=== PATIENT | female | born 1970 | race Hispanic/Latino ===

== ENCOUNTER 2021-05-27 02:12 | Emergency (ER) | payer OTHER ==
[~2021-05-27] VITALS: Ht 157.5 cm; Wt 72.6 kg
[2021-05-27] MEDS ORDERED: ONDANSETRON 4MG INJ IVP ONE (03:00)
[2021-05-27] MEDS ORDERED: 0.9%NACL 1000ML 1,000 ML IV ONE (03:00)
[2021-05-27] MEDS ORDERED: FAMOTIDINE 20MG VIAL IV ONE (03:00)
[2021-05-27] MEDS ORDERED: METOCLOPRAMIDE 10 MG/2 ML VIAL IVP ONE (03:00)
[2021-05-27] MEDS ORDERED: PANTOPRAZOLE 40 MG/VIAL IVP ONE (03:00)
[2021-05-27] MEDS ORDERED: KETOROLAC 30MG VIAL (30MG/ML) IV ONE (03:00)
[2021-05-27 03:18] LABS: CREATININE 0.8 mg/dL (0.5-1.5); POTASSIUM 3.9 mmol/L (3.5-5.1)
[2021-05-27 03:23] LABS: HEMATOCRIT 36.2 % (36-48); LYMPHOCYTES % (AUTO) 7.9 % (21.0-51.0); MEAN CORPUSCULAR HEMOGLOBIN 30.7 pg (27.0-33.0); MEAN CORPUSCULAR HGB CONC 34.3 g/dL (32.0-36.0); MEAN CORPUSCULAR VOLUME 89.6 fL (79-99); MONOCYTES % (AUTO) 3.5 % (3.0-13.0); PLATELET COUNT (AUTO) 181 K/uL (130-400); RED BLOOD CELL COUNT(AUTO) 4.04 MIL/uL (4.00-5.50); RED CELL DISTRIBUTION WIDTH 12.7 % (11.0-15.5); WHITE BLOOD COUNT (AUTO) 12.4 K/uL (4.8-10.8)
[2021-05-27 03:24] LABS: BASOPHILS % (AUTO) 0.2 % (0.0-5.0); EOSINOPHILS % (AUTO) 0.1 % (0.0-8.0)
[2021-05-27 03:29] LABS: ALBUMIN 3.6 g/dL (3.5-5.0); BILIRUBIN,TOTAL 0.3 mg/dL (0.2-1.0); TOTAL PROTEIN, SERUM 7.1 g/dL (6.0-8.3)
[2021-05-27] MEDS ORDERED: IOHEXOL 350 MG/ML 100ML INFUS..BTL IV ONE (03:41)
[2021-05-27 04:34] LABS: APPEARANCE,URINE CLEAR (CLEAR); BILIRUBIN,URINE NEGATIVE (NEGATIVE); COLOR,URINE YELLOW (YELLOW); GLUCOSE, URINE (UA) NEGATIVE (NEGATIVE); KETONES,URINE NEGATIVE (NEGATIVE); LEUKOCYTE ESTERASE ,URINE NEGATIVE (NEGATIVE); NITRATE,URINE NEGATIVE (NEGATIVE); OCCULT BLOOD,URINE NEGATIVE (NEGATIVE); PH,URINE 8.5 (5.0-8.0); PROTEIN,URINE NEGATIVE (NEGATIVE); UROBILINOGEN,URINE 0.2 mg/dL (0.2-1.0)
[2021-05-27] MEDS ORDERED: METRONIDAZOLE 500MG/100ML BAG 100 ML IVPB ONE (05:00)
[2021-05-27] MEDS ORDERED: LEVOFLOXACIN 500 MG/D5W 100 ML 100 ML IV ONE (05:00)
[2021-05-27] MEDS ORDERED: METR-172 PO (05:47)
[2021-05-27] MEDS ORDERED: DICY20TA2 PO (05:47)
[2021-05-27] MEDS ORDERED: ONDA4TAB10 PO (05:47)
[2021-05-27] MEDS ORDERED: LEVO500T90 PO (05:47)
[2021-05-27] MEDS ORDERED: METO-296 PO (05:47)
[2021-05-27] MEDS ORDERED: MORPHINE 2 MG SYG IVP ONE (06:00)
[2021-05-27 06:04] VITALS: BP 110/68
[2021-05-27] MEDS ORDERED: MORPHINE 4 MG SYG ONE (06:16)
== END 2021-05-27 06:29 | disposition home or self-care (01) ==
LOC: EDH 02:12
DX: K57.32 Diverticulitis of large intestine without perforation or abscess without bleeding (principal); E86.9 Volume depletion, unspecified; R11.2 Nausea with vomiting, unspecified; Z79.899 Other long term (current) drug therapy; Z98.890 Other specified postprocedural states
CPT/HCPCS: 36415; 74177; 80053; 81003; 83690; 84702; 85025; 96361; 96365; 96366; 96368; 96375; 99285; C9113; J1885; J1956; J2270; J2405; J2765; J3490 ×2; J7030; Q9967